=== PATIENT | female | born 1975 | race Caucasian/White ===

== ENCOUNTER 2017-04-17 16:45 | Emergency (ER) | payer BC ==
[~2017-04-17] VITALS: Ht 157.5 cm; Wt 78.1 kg
[~2017-04-17 16:45] MED LIST: PHEN-876 PO; SOLI5TAB2 PO; TAMS0.4C38 PO; TRAM-10 PO
[2017-04-17 16:51] VITALS: TEMP 37.3; Ht 157.5 cm; Wt 78.1 kg
[2017-04-17] MEDS ORDERED: HYDROmorphone INJ 1 MG/ML SYR IV STA (17:00)
[2017-04-17] MEDS ORDERED: ONDANSETRON INJ 2 MG/ML 2 ML VIAL IV STA (17:00)
[2017-04-17] MEDS ORDERED: ACET-1256 PO (17:11)
[2017-04-17 17:13] LABS: BASO % 0.1 %; BASO ABS # 0.01 K/uL (0-0.2); COMPLETE YES; EOS % 0.5 %; HEMATOCRIT 42.4 % (37-47); IG% 0.3 %; LYMPH % 15.4 %; LYMPH ABS # 1.68 K/uL (1.2-3.4); MEAN CELL VOLUME 91.2 fL (80-100); MEAN PLATELET VOLUME 9.6 fL (7.4-10.4); MONO % 6.6 %; NEUT % 77.1 %; PLATELET COUNT 226 K/uL (130-400); RED BLOOD COUNT 4.65 M/uL (4.2-5.4); WHITE BLOOD COUNT 10.93 K/uL (4.8-10.8)
--- NOTE | 2017-04-17 17:23 | EMERGENCY ROOM VISIT NOTE ---
History First contact with patient: 16:53 Chief Complaint: KIDNEY STONE Stated Complaint: PAIN IN R SIDE History of Present Illness The patient is a 41 year old female who presents to the Emergency Room with complaints of right flank pain. The patient states that she had mild pain in the right flank last evening which increased overnight. She now rates her discomfort a 10/10. She began vomiting early this morning. She states she has had chills but denies fevers. She has been using a heating pad without relief. She has a history of kidney stones and has had lithotripsy in the past. She denies any associated urinary symptoms. The pain radiates from the right flank into the right lower abdomen. She does state that her current symptoms feel similar to when she has had kidney stones in the past. She denies any chest pain or shortness of breath. Review of Systems A complete 10 point review of systems was reviewed with the patient with pertinent positives and negatives as per history of present illness. All else were negative. Past Medical/Surgical History Medical Problems: (1) Acute kidney failure, unspecified (2) Essential (primary) hypertension (3) Kidney stone on left side Family History Diabetes mellitus Heart disease Kidney disease Social History Smoking Status: Never Smoker Alcohol Use: occasionally Drug Use: none Marital Status: Housing Status: lives with family Occupation Status: employed Current/Historical Medications Scheduled Ondasetron Odt (Zofran Odt), 4 MG SL Q6H Sulfa/Trimethoprim (Bactrim Ds 800MG/160MG), 1 TAB PO BID Scheduled PRN Acetaminophen (Tylenol), 1,000 MG PO UD PRN for Pain Hydrocodone/Acetaminophen 5MG/325MG ([place] 5MG/325MG), 1-2 TABLET PO Q4H PRN for Pain Physical Exam Vital Signs Date Time Temp Pulse Resp B/P (MAP) Pulse Ox O2 Delivery O2 Flow Rate FiO2 04/17/17 20:17 107 20 143/84 95 04/17/17 19:01 106 20 151/90 95 Room Air 04/17/17 16:51 37.3 128 22 157/88 100 Room Air Physical Exam VITALS: Vitals are noted on the nurse's note and reviewed by myself. Vital signs stable. GENERAL: This is a 41-year-old female, in no acute distress, nondiaphoretic, well-developed well-nourished. HEART: Regular rate and rhythm without murmurs gallops or rubs. LUNGS: Clear to auscultation bilaterally without wheezes, rales or rhonchi. ABDOMEN: Positive bowel sounds x 4. Soft, without pallor quadrant tenderness. Right CVA tenderness. No guarding or rebound tenderness. NEURO: Patient was alert and oriented to person place and time. Medical Decision & Procedures ER Provider Diagnostic Interpretation: ABD/PELVIS WITHOUT FOR STONE IMPRESSION: 1. Mild urothelial thickening combined with mild circumferential bladder wall thickening. This suggest cystitis with upper tract involvement. Correlate with urinalysis. 2. Nonobstructing left renal calculus. 3. Hepatic steatosis. Laboratory Results 04/17/17 17:00 Red Blood Count 4.65, Mean Corpuscular Volume 91.2, Mean Corpuscular Hemoglobin 31.0, Mean Corpuscular Hemoglobin Concent 34.0, Mean Platelet Volume 9.6, Neutrophils (%) (Auto) 77.1, Lymphocytes (%) (Auto) 15.4, Monocytes (%) (Auto) 6.6, Eosinophils (%) (Auto) 0.5, Basophils (%) (Auto) 0.1, Neutrophils # (Auto) 8.44, Lymphocytes # (Auto) 1.68, Monocytes # (Auto) 0.72, Eosinophils # (Auto) 0.05, Basophils # (Auto) 0.01 04/17/17 17:00 Test 04/17/17 16:40 04/17/17 17:00 Urine Color YELLOW Urine Appearance CLOUDY (CLEAR) Urine pH 8.5 (4.5-7.5) Urine Specific [place] 1.014 (1.000-1.030) Urine Protein TRACE (NEG) Urine Glucose (UA) NEG (NEG) Urine Ketones 1+ (NEG) Urine Occult Blood 1+ (NEG) Urine Nitrite POS (NEG) Urine Bilirubin NEG (NEG) Urine Urobilinogen NEG (NEG) Urine Leukocyte Esterase LARGE (NEG) Urine WBC (Auto) >30 /hpf (0-5) Urine RBC (Auto) 10-30 /hpf (0-4) Urine Hyaline Casts (Auto) 1-5 /lpf (0-5) Urine Epithelial Cells (Auto) >30 /lpf (0-5) Urine Bacteria (Auto) 3+ (NEG) Urine Test NEG (NEG) White Blood Count 10.93 K/uL (4.8-10.8) Red Blood Count 4.65 M/uL (4.2-5.4) Hemoglobin 14.4 g/dL (12.0-16.0) Hematocrit 42.4 % (37-47) Mean Corpuscular Volume 91.2 fL (80-100) Mean Corpuscular Hemoglobin 31.0 pg (25-34) Mean Corpuscular Hemoglobin Concent 34.0 g/dl (32-36) Platelet Count 226 K/uL (130-400) Mean Platelet Volume 9.6 fL (7.4-10.4) Neutrophils (%) (Auto) 77.1 % Lymphocytes (%) (Auto) 15.4 % Monocytes (%) (Auto) 6.6 % Eosinophils (%) (Auto) 0.5 % Basophils (%) (Auto) 0.1 % Neutrophils # (Auto) 8.44 K/uL (1.4-6.5) Lymphocytes # (Auto) 1.68 K/uL (1.2-3.4) Monocytes # (Auto) 0.72 K/uL (0.11-0.59) Eosinophils # (Auto) 0.05 K/uL (0-0.5) Basophils # (Auto) 0.01 K/uL (0-0.2) RDW Standard Deviation 43.8 fL (36.4-46.3) RDW Coefficient of Variation 13.2 % (11.5-14.5) Immature Granulocyte % (Auto) 0.3 % Immature Granulocyte # (Auto) 0.03 K/uL (0.00-0.02) Anion Gap 9.0 mmol/L (3-11) Est Creatinine Clear Calc Drug Dose 66.2 ml/min Estimated GFR () 74.5 Estimated GFR (Non- 64.3 BUN/Creatinine Ratio 8.1 (10-20) Calcium Level 8.9 mg/dl (8.5-10.1) Total Bilirubin 0.9 mg/dl (0.2-1) Aspartate Amino Transf (AST/SGOT) 17 U/L (15-37) Alanine Aminotransferase (ALT/SGPT) 23 U/L (12-78) Alkaline Phosphatase 58 U/L (45-117) Total Protein 7.6 gm/dl (6.4-8.2) Albumin 3.7 gm/dl (3.4-5.0) Globulin 3.9 gm/dl (2.5-4.0) Albumin/Globulin Ratio 1.0 (0.9-2) Lipase 130 U/L (73-393) Medications Administered Medications (Trade) Dose Ordered Sig/Verito Route Start Time Stop Time Status Last Admin Dose Admin Hydromorphone HCl (Dilaudid Inj) 1 mg NOW STAT IV 04/17/17 17:00 04/17/17 17:02 DC 04/17/17 17:13 1 MG Ondansetron HCl (Zofran Inj) 4 mg NOW STAT IV 04/17/17 17:00 04/17/17 17:02 DC 04/17/17 17:13 4 MG Ceftriaxone Sodium (Rocephin Inj) 1 gm NOW STAT IV 04/17/17 19:29 04/17/17 19:30 DC 04/17/17 19:34 1 GM Trimethoprim/ Sulfamethoxazole (Sulfameth/ Trimeth Ds 800/ 160MG Home Pack) 1 homepack UD ONCE PO 04/17/17 20:00 04/17/17 20:01 DC 04/17/17 20:08 1 HOMEPACK Ondansetron HCl (ZOFRAN ODT 4MG Home Pack) 1 homepack UD ONCE PO 04/17/17 20:00 04/17/17 20:01 DC 04/17/17 20:09 1 HOMEPACK Acetaminophen/ Hydrocodone Bitart ([place] 5/325mg Home Pack) 1 homepack UD ONCE PO 04/17/17 20:00 04/17/17 20:01 DC 04/17/17 20:08 1 HOMEPACK ED Course The patient was evaluated as above. Labs were drawn and IV access was obtained. Patient was medicated with 1 mg Dilaudid and [address] of the abd/pelvis was performed and read by radiology as above. Patient was reevaluated and findings were discussed. 1 gram Rocephin was ordered. Discharge instructions were reviewed with the patient. The patient verbalized understanding of my assessment and treatment plan and was discharged home in good condition. Medical Decision Differential diagnosis includes kidney stone, pyelonephritis, gallbladder disease, pancreatitis, among others. The patient is a 41-year-old female who presents today complaining of right flank pain and vomiting. Labs revealed a minimal leukocytosis. Creatinine within normal limits. CT showed no stone but evidence of urinary tract infection with upper involvement. Urinalysis was suggestive of infection. Urine was negative. Patient was treated with Rocephin IV and will be placed on Bactrim. She was given a prescription for [place] and Zofran for symptomatic relief. She was instructed to return here for worsening pain, vomiting, fevers, or other worsening symptoms. Based on the patient's presentation and work up, I feel the patient is stable for outpatient treatment. The patient was educated to return to the emergency department for any worsening of their current condition or new/concerning symptoms. She will follow up with her PCP. [facility] Monitoring Program Search Results: patient reviewed within database, no issues identified Medication Reconcilliation Current Medication List: was personally reviewed by me Blood Pressure Screening Patient's blood pressure: Normal blood pressure Impression Primary Impression: Pyelonephritis Departure Information Dispostion Home / Self-Care Condition GOOD Prescriptions Hydrocodone/Acetaminophen 5MG/325MG ([place] 5MG/325MG) Tab 1-2 TABLET PO Q4H Y for Pain, #12 TAB For Initial Treatment Prov: Bhavya Mancini PA-C 04/17/17 Ondasetron Odt (ZOFRAN ODT) 4 Mg Tab 4 MG SL Q6H for Nausea, #15 TAB Prov: Bhavya Mancini PA-C 04/17/17 Sulfa/Trimethoprim (Bactrim Ds 800MG/160MG) Tab 1 TAB PO BID for 9 Days, #18 TAB Prov: Bhavya Mancini PA-C 04/17/17 Referrals Vera Carroll M.D. (PCP) Patient Instructions [facility] Additional Instructions You have been treated in the Emergency Department for a kidney infection. You have been prescribed Bactrim to be taken twice daily for a total of 10 days. This is an antibiotic. All antibiotics have the potential to cause diarrhea. Stop this medication and contact a medical provider if you were to develop any significant adverse side effects including: wheezing, shortness of breath, passing out, vomiting, or a diffuse rash. Always take antibiotics as directed and COMPLETE the ENTIRE course regardless of the improvement of your symptoms. You have been prescribed Zofran to be used for any nausea or vomiting. Take as prescribed. You have been prescribed [place] to be used for pain control. Take 1-2 tablets every 4-6 hours as needed for pain. This is a narcotic medication. You cannot drive or consume alcohol while on this medicine. This medicine should only be used for pain that cannot be controlled with [id number] pain medicines. Drink plenty of water and stay well hydrated. As with any trip to the Emergency Department, you should follow-up with your Primary Care Provider from today's visit. Return to the emergency department if your symptoms persist despite treatment plan outlined above or if the following symptoms occur: Increased pain, fevers, vomiting or any other new/concerning symptoms.
[2017-04-17 17:32] LABS: BUN/CREATININE RATIO 8.1 (10-20); CALCIUM 8.9 mg/dl (8.5-10.1); CREATININE 1.06 mg/dl (0.60-1.20); POTASSIUM 3.8 mmol/L (3.5-5.1)
--- NOTE | 2017-04-17 18:24 | DIAGNOSTIC IMAGING REPORT ---
ABD/PELVIS WITHOUT FOR STONE CLINICAL HISTORY: 41 years-old Female presenting with right flank pain, vomiting, hx stones. TECHNIQUE: Multidetector CT of the abdomen and pelvis was performed without the use of intravenous contrast. IV contrast: None. A dose lowering technique was used consistent with the principles of ALARA (as low as reasonably achievable). COMPARISON: 07/14/2015. CT DOSE (mGy.cm): The estimated cumulative dose is 1156.04 mGy.cm. FINDINGS: Administration Manager topogram: Unremarkable. Lung bases: Minimal dependent changes likely atelectasis. Normal heart size. No pericardial or pleural effusion. Liver: Normal morphology. Density consistent with hepatic steatosis. Biliary: No gross biliary ductal dilatation allowing for noncontrast technique. Normal gallbladder. Pancreas: Normal noncontrast appearance. Spleen: Small hypodensity in the spleen, likely hemangioma or lymphangioma. Adrenal glands: Normal noncontrast appearance. Kidneys and ureters: 11 mm nonobstructing calculus in the interpolar region of the left kidney. Right kidney normal. No hydronephrosis. Mild urothelial thickening suggested. Bladder: Mild circumferential bladder wall thickening. Pelvic organs: Normal noncontrast appearance. Bowel: Mild stool burden. No bowel obstruction. Peritoneal cavity: No free fluid or intraperitoneal gas. Lymph nodes: No gross lymphadenopathy allowing for noncontrast technique. Vasculature: Normal noncontrast appearance. Abdominal wall: Normal. Musculoskeletal: Normal. IMPRESSION: 1. Mild urothelial thickening combined with mild circumferential bladder wall thickening. This suggest cystitis with upper tract involvement. Correlate with urinalysis. 2. Nonobstructing left renal calculus. 3. Hepatic steatosis. Electronically signed by: Madhu Quiroz M.D. 04/17/2017 6:22 PM Dictated Date/Time: 04/17/2017 6:16 PM
[2017-04-17 19:10] LABS: URINE APPEARANCE CLOUDY (CLEAR); URINE BILIRUBIN NEG (NEG); URINE COLOR YELLOW; URINE EPITHELIAL CELL AUTO >30 /lpf (0-5); URINE NITRITE POS (NEG); URINE PH 8.5 (4.5-7.5); URINE SPECIFIC GRAVITY 1.014 (1.000-1.030); UROBILINOGEN NEG (NEG); ZZUR CULT IF INDIC CLEAN CATCH YES
[2017-04-17 19:22] LABS: MANUAL MICROSCOPIC REQUIRED? NO; REVIEW REQ? NO; SULFASALICYLIC ACID POS (NEG)
[2017-04-17] MEDS ORDERED: CEFTRIAXONE SOD INJ 1 GM ADDVIAL IV STA (19:29)
[2017-04-17] MEDS ORDERED: SEPTRA DS HOME PACK 1 EA VIAL PO ONE (20:00)
[2017-04-17] MEDS ORDERED: ONDANSETRON HOME PACK 4MG OD TAB PO ONE (20:00)
[2017-04-17] MEDS ORDERED: NORCO 5/325MG HOME PACK PO ONE (20:00)
[2017-04-17] MEDS ORDERED: SULF800T23 PO (20:09)
[2017-04-17] MEDS ORDERED: ONDA4TAB10 SL (20:09)
[2017-04-17] MEDS ORDERED: HYDR-5688 PO (20:09)
[2017-04-17 20:17] VITALS: BP 143/84; PULSE 107; O2SAT 95
--- NOTE | 2017-04-19 11:39 | Pharmacy Progress Note ---
ED Pharmacist Culture FollowUp Date of Service: Apr 19, 2017. Patient was sent home with a prescription for Bactrim, which should cover the E. coli growing from the patient's urine culture.
== END 2017-04-17 20:18 | disposition home or self-care (01) ==
LOC: C.EDB 16:46
DX: N12 Tubulo-interstitial nephritis, not specified as acute or chronic (principal); R11.10 Vomiting, unspecified; I10 Essential (primary) hypertension; Z87.442 Personal history of urinary calculi; Z82.49 Family history of ischemic heart disease and other diseases of the circulatory system; Z83.3 Family history of diabetes mellitus; Z84.1 Family history of disorders of kidney and ureter

== ENCOUNTER 2017-04-23 09:42 | Emergency (ER) | payer BC ==
[~2017-04-23] VITALS: Ht 165.1 cm; Wt 80.0 kg
[~2017-04-23 09:42] MED LIST changes: +ACET-1256 PO; +HYDR-5688 PO; +ONDA4TAB10 SL; -PHEN-876 PO; -SOLI5TAB2 PO; +SULF800T23 PO; -TAMS0.4C38 PO; -TRAM-10 PO
[2017-04-23 09:48] VITALS: TEMP 36.8; Ht 165.1 cm; Wt 80.0 kg
[2017-04-23] MEDS ORDERED: CEFTRIAXONE SOD INJ 1 GM ADDVIAL IV STA (10:22)
[2017-04-23] MEDS ORDERED: SODIUM CHLORIDE 0.9% 1000ML 1,000 ML IV STA ×2 (10:22→12:40)
[2017-04-23 11:00] LABS: URINE APPEARANCE CLEAR (CLEAR); URINE BILIRUBIN NEG (NEG); URINE COLOR YELLOW; URINE EPITHELIAL CELL AUTO >30 /lpf (0-5); URINE NITRITE NEG (NEG); URINE PH 6.5 (4.5-7.5); URINE SPECIFIC GRAVITY 1.012 (1.000-1.030); UROBILINOGEN NEG (NEG)
[2017-04-23 11:04] LABS: MANUAL MICROSCOPIC REQUIRED? NO; REVIEW REQ? NO
[2017-04-23 11:08] LABS: BASO % 0.4 %; BASO ABS # 0.02 K/uL (0-0.2); COMPLETE YES; EOS % 2.5 %; HEMATOCRIT 44.5 % (37-47); IG% 0.2 %; LYMPH % 38.7 %; LYMPH ABS # 1.84 K/uL (1.2-3.4); MEAN CELL VOLUME 90.3 fL (80-100); MEAN CORPUSCULAR HEMOGLOBIN 31.4 pg (25-34); MEAN CORPUSCULAR HGB CONC 34.8 g/dl (32-36); MEAN PLATELET VOLUME 9.8 fL (7.4-10.4); MONO % 10.7 %; NEUT % 47.5 %; PLATELET COUNT 286 K/uL (130-400); RED BLOOD COUNT 4.93 M/uL (4.2-5.4); WHITE BLOOD COUNT 4.76 K/uL (4.8-10.8)
[2017-04-23 11:12] LABS: PREG INTERNAL NEGATIVE QC NEG CLEAR BACKGROUND; PREG INTERNAL POSITIVE QC POS CONTROL LINE
[2017-04-23 11:22] LABS: BUN/CREATININE RATIO 10.3 (10-20); CALCIUM 9.1 mg/dl (8.5-10.1); CREATININE 1.24 mg/dl (0.60-1.20)
--- NOTE | 2017-04-23 11:33 | DIAGNOSTIC IMAGING REPORT ---
(RENAL)RETROPERITON COMP HISTORY: 41 years-old Female RIGHT FLANK PAIN acute right-sided flank pain. COMPARISON: CT 04/17/2017 TECHNIQUE: Multiple real-time sonographic images of the kidneys and urinary bladder were obtained assessing grayscale appearance and color flow. FINDINGS: The right kidney measures 10.7 x 5.0 x 5.9 cm and is again unremarkable without renal calculi or hydronephrosis. Cortical medullary differentiation is preserved. 9 mm calculus of the interpolar left kidney is redemonstrated without hydronephrosis. The left kidney measures 10.5 x 5.4 x 5.6 cm and is otherwise unremarkable. Cortical medullary differentiation is preserved. Bilateral ureteral jets are seen within the bladder. Mild amount of mobile debris seen within the dependent bladder. Imaged uterus is unremarkable. Incidental note is made of mildly increased echogenicity of the liver. IMPRESSION: 1. 9 mm calculus of the interpolar left kidney is again seen. No evidence of hydronephrosis within either kidney. 2. Mild degree of mobile debris within urinary bladder is nonspecific. Correlate with urinalysis. 3. Mild fatty infiltration of the liver. The above report was generated using voice recognition software. It may contain grammatical, syntax or spelling errors. Electronically signed by: Jessee Cartagena M.D. 04/23/2017 11:32 AM Dictated Date/Time: 04/23/2017 11:29 AM
--- NOTE | 2017-04-23 12:03 | DIAGNOSTIC IMAGING REPORT ---
KUB HISTORY: Acute right-sided flank pain RIGHT FLANK PAIN COMPARISON: Renal ultrasound of same day, CT 04/17/2017 FINDINGS: The bowel gas pattern is non-obstructive. There is no organomegaly. 1.5 x 0.6 cm calcification is seen within the region of the interpolar left kidney. No definite right-sided renal calculi identified. No definite ureteral calculi. Phleboliths of the pelvis redemonstrated. No pneumoperitoneum or pneumatosis. No fracture. IMPRESSION: 1. Unchanged large calculus of the interpolar left kidney without ureteral calculi identified. Electronically signed by: Jessee Cartagena M.D. 04/23/2017 12:02 PM Dictated Date/Time: 04/23/2017 12:00 PM
--- NOTE | 2017-04-23 13:23 | EMERGENCY ROOM VISIT NOTE ---
History First contact with patient: 09:56 Chief Complaint: URINARY SYMPTOMS Stated Complaint: KIDNEY INFECTION Nursing Triage Summary: Pt c/o pain on right side, seen Wednesday here and treated for kidney infection. Still has pain. Still has fever and burning with urination. Tylenol 8am. History of Present Illness Patient is a 41-year-old white female who returns to the emergency department for ongoing right flank pain, fevers and vomiting times roughly 1 week. She was seen in the emergency Department 6 days ago for the same complaint. At that time, she had more colicky right flank pain, and was concerned that she was passing another kidney stone. She does have a history of kidney stones, and has required lithotripsy in the past. She was seen on the and thoroughly evaluated. She was found to have a slight leukocytosis, urinalysis was concerning for UTI, and CT scan of the abdomen and pelvis did not demonstrate any right-sided nephrolithiasis or ureteral calculus, but did show findings consistent with cystitis with upper tract involvement. She was treated with IV Rocephin, and was discharged on Bactrim. Urine culture grew a pansensitive Escherichia coli. Patient has been taking the Bactrim as prescribed. She has had a 5 and half days of Bactrim therapy. She continues to note a constant, achy right mid back pain. It does not radiate into the abdomen or the flank any longer. She continues to run intermittent fevers, she states that her temperature last evening was 101.9F orally, it was 100F orally prior to coming to the emergency department this morning. She continues to be nauseous and has had vomiting intermittently, which is helped by using her Zofran. She has been taking 2000 mg of acetaminophen every 6 hours. She did use a Dante tablet for her back pain yesterday. She continues to no burning with urination. She denies any anterior abdominal pain. She has had some loose bowel movements, but no diarrhea. She did call her primary care doctor's office today, and was referred to the emergency department for further care and evaluation. She presently rates her discomfort a 8/10. Review of Systems Review of systems as per HPI. All other systems reviewed were negative. 10 systems reviewed. Past Medical/Surgical History Medical Problems: (1) Acute kidney failure, unspecified (2) Calculus Of Kidney (3) Calculus Of Ureter (4) Constipation (5) Essential (primary) hypertension (6) Kidney stone on left side (7) Pyelonephritis Surgical Problems: (1) History of arthroscopic knee surgery (2) History of lithotripsy Electronic medical records are reviewed and summarized as above/below. See Problem List. Family History Diabetes mellitus Heart disease Kidney disease Social History Smoking Status: Never Smoker Alcohol Use: occasionally Drug Use: none Marital Status: Housing Status: lives with family Occupation Status: employed Current/Historical Medications Scheduled Ondasetron Odt (Zofran Odt), 4 MG SL Q6H Sulfa/Trimethoprim (Bactrim Ds 800MG/160MG), 1 TAB PO BID Scheduled PRN Acetaminophen (Tylenol), 1,000 MG PO UD PRN for Pain Hydrocodone/Acetaminophen 5MG/325MG (Dante 5MG/325MG), 1-2 TABLET PO Q4H PRN for Pain Physical Exam Vital Signs Date Time Temp Pulse Resp B/P (MAP) Pulse Ox O2 Delivery O2 Flow Rate FiO2 04/23/17 14:35 80 18 147/90 97 04/23/17 13:00 85 18 149/90 97 Room Air 04/23/17 11:39 90 20 155/95 100 Room Air 04/23/17 11:02 89 20 149/102 96 Room Air 04/23/17 09:48 36.8 101 18 187/111 98 Room Air Physical Exam CONSTITUTIONAL: Patient is a nontoxic-appearing 41-year-old white female who is awake and alert and in moderate distress due to her right back pain. EYES: Pupils equal, round, reactive to light and accommodation. EOMs intact without nystagmus. Sclera are anicteric. ENT: Tympanic membranes intact, with normal landmarks. External canals are clear. Oral and nasopharynx are clear. Mucous membranes are moist, no lesions , tongue and gums appear normal. CARDIOVASCULAR: Regular rate and rhythm, with normal S1 and S2, no murmur or gallop or rub is heard. No carotid bruits auscultated. No JVD. Peripheral pulses easy to palpable. RESPIRATORY: Breath sounds equal and clear to auscultation without wheezes, rales, or rhonchi heard. Full and equal chest expansion without accessory muscle use or retractions. GI: Bowel sounds are present. Abdomen is soft, nontender, nondistended. No right upper quadrant pain to palpation. No organomegaly. No pulsatile masses. No guarding or rebound. Right CVA tenderness noted. MUSCULOSKELETAL: Full range of motion of extremities x 4 with good strength. No cyanosis, edema, joint tenderness or swelling. No deformity. INTEGUMENTARY: No lesions or rash, normal skin turgor. NEUROLOGICAL: Alert, oriented, and cooperative. Cranial nerves, sensation and strength grossly intact. Pupils round, equal, and react to light, EOMs are full. LYMPH: No lymphadenopathy. Medical Decision & Procedures ER Provider Diagnostic Interpretation: (RENAL)RETROPERITON COMP HISTORY: 41 years-old Female RIGHT FLANK PAIN acute right-sided flank pain. COMPARISON: CT 04/17/2017 TECHNIQUE: Multiple real-time sonographic images of the kidneys and urinary bladder were obtained assessing grayscale appearance and color flow. FINDINGS: The right kidney measures 10.7 x 5.0 x 5.9 cm and is again unremarkable without renal calculi or hydronephrosis. Cortical medullary differentiation is preserved. 9 mm calculus of the interpolar left kidney is redemonstrated without hydronephrosis. The left kidney measures 10.5 x 5.4 x 5.6 cm and is otherwise unremarkable. Cortical medullary differentiation is preserved. Bilateral ureteral jets are seen within the bladder. Mild amount of mobile debris seen within the dependent bladder. Imaged uterus is unremarkable. Incidental note is made of mildly increased echogenicity of the liver. IMPRESSION: 1. 9 mm calculus of the interpolar left kidney is again seen. No evidence of hydronephrosis within either kidney. 2. Mild degree of mobile debris within urinary bladder is nonspecific. Correlate with urinalysis. 3. Mild fatty infiltration of the liver. KUB HISTORY: Acute right-sided flank pain RIGHT FLANK PAIN COMPARISON: Renal ultrasound of same day, CT 04/17/2017 FINDINGS: The bowel gas pattern is non-obstructive. There is no organomegaly. 1.5 x 0.6 cm calcification is seen within the region of the interpolar left kidney. No definite right-sided renal calculi identified. No definite ureteral calculi. Phleboliths of the pelvis redemonstrated. No pneumoperitoneum or pneumatosis. No fracture. IMPRESSION: 1. Unchanged large calculus of the interpolar left kidney without ureteral calculi identified. Laboratory Results 04/23/17 10:35 Red Blood Count 4.93, Mean Corpuscular Volume 90.3, Mean Corpuscular Hemoglobin 31.4, Mean Corpuscular Hemoglobin Concent 34.8, Mean Platelet Volume 9.8, Neutrophils (%) (Auto) 47.5, Lymphocytes (%) (Auto) 38.7, Monocytes (%) (Auto) 10.7, Eosinophils (%) (Auto) 2.5, Basophils (%) (Auto) 0.4, Neutrophils # (Auto ) 2.26, Lymphocytes # (Auto) 1.84, Monocytes # (Auto) 0.51, Eosinophils # (Auto ) 0.12, Basophils # (Auto) 0.02 04/23/17 10:35 Test 04/23/17 10:30 04/23/17 10:35 Urine Color YELLOW Urine Appearance CLEAR (CLEAR) Urine pH 6.5 (4.5-7.5) Urine Specific [place] 1.012 (1.000-1.030) Urine Protein NEG (NEG) Urine Glucose (UA) NEG (NEG) Urine Ketones NEG (NEG) Urine Occult Blood NEG (NEG) Urine Nitrite NEG (NEG) Urine Bilirubin NEG (NEG) Urine Urobilinogen NEG (NEG) Urine Leukocyte Esterase MODERATE (NEG) Urine WBC (Auto) 5-10 /hpf (0-5) Urine RBC (Auto) 5-10 /hpf (0-4) Urine Hyaline Casts (Auto) 1-5 /lpf (0-5) Urine Epithelial Cells (Auto) >30 /lpf (0-5) Urine Bacteria (Auto) NEG (NEG) Urine Test NEG (NEG) White Blood Count 4.76 K/uL (4.8-10.8) Red Blood Count 4.93 M/uL (4.2-5.4) Hemoglobin 15.5 g/dL (12.0-16.0) Hematocrit 44.5 % (37-47) Mean Corpuscular Volume 90.3 fL (80-100) Mean Corpuscular Hemoglobin 31.4 pg (25-34) Mean Corpuscular Hemoglobin Concent 34.8 g/dl (32-36) Platelet Count 286 K/uL (130-400) Mean Platelet Volume 9.8 fL (7.4-10.4) Neutrophils (%) (Auto) 47.5 % Lymphocytes (%) (Auto) 38.7 % Monocytes (%) (Auto) 10.7 % Eosinophils (%) (Auto) 2.5 % Basophils (%) (Auto) 0.4 % Neutrophils # (Auto) 2.26 K/uL (1.4-6.5) Lymphocytes # (Auto) 1.84 K/uL (1.2-3.4) Monocytes # (Auto) 0.51 K/uL (0.11-0.59) Eosinophils # (Auto) 0.12 K/uL (0-0.5) Basophils # (Auto) 0.02 K/uL (0-0.2) RDW Standard Deviation 42.5 fL (36.4-46.3) RDW Coefficient of Variation 12.9 % (11.5-14.5) Immature Granulocyte % (Auto) 0.2 % Immature Granulocyte # (Auto) 0.01 K/uL (0.00-0.02) Anion Gap 10.0 mmol/L (3-11) Est Creatinine Clear Calc Drug Dose 61.1 ml/min Estimated GFR () 61.6 Estimated GFR (Non- 53.2 BUN/Creatinine Ratio 10.3 (10-20) Calcium Level 9.1 mg/dl (8.5-10.1) Total Bilirubin 0.4 mg/dl (0.2-1) Aspartate Amino Transf (AST/SGOT) 19 U/L (15-37) Alanine Aminotransferase (ALT/SGPT) 30 U/L (12-78) Alkaline Phosphatase 55 U/L (45-117) Total Protein 8.4 gm/dl (6.4-8.2) Albumin 4.2 gm/dl (3.4-5.0) Globulin 4.2 gm/dl (2.5-4.0) Albumin/Globulin Ratio 1.0 (0.9-2) Acetaminophen Level < 2 ug/ml (10-30) Medications Administered Medications (Trade) Dose Ordered Sig/Verito Route Start Time Stop Time Status Last Admin Dose Admin Sodium Chloride 1,000 ml @ 999 mls/hr Q1H1M STAT IV 04/23/17 10:22 04/23/17 11:22 DC 04/23/17 11:01 999 MLS/HR Ceftriaxone Sodium (Rocephin Inj) 1 gm NOW STAT IV 04/23/17 10:22 04/23/17 10:25 DC 04/23/17 11:01 1 GM Sodium Chloride 1,000 ml @ 999 mls/hr Q1H1M STAT IV 04/23/17 12:40 04/23/17 13:40 DC 04/23/17 13:05 999 MLS/HR ED Course The patient was seen and assessed as above. Her old records were reviewed, specifically her most recent ED visit. IV lock was initiated. Laboratory studies were collected including CBC with differential, CMP, blood cultures 2, urinalysis, acetaminophen level, and [id number] lactic acid. She was given a liter bolus of normal saline solution 2, and medicated with 1 g of ceftriaxone IV. She was offered at multiple times, medications for pain and nausea, but declined. She was noted to be initially tachycardic and hypertensive upon presentation to the emergency department, tachycardia improved with IV hydration, blood pressure remained borderline elevated. I suspect that this is likely situational. Laboratory studies today are somewhat improved. White count today is 4700, down from almost 11,000 6 days ago. No left shift or bandemia noted. There are no electrolyte imbalance noted. Creatinine is slightly elevated today at 1.24, BUN is normal. LFTs are not elevated. Acetaminophen level is undetectable. Urinalysis showed a notes moderate leuk esterase, only 5-10 WBCs and RBCs and greater than 30 epithelial cells. There is no ketones, no nitrates , no bacteria detected. [id number] lactic acid was 1.29. KUB noted a large, unchanged calculus in the interpolar the left kidney. No other acute findings are noted. No definite right-sided calculi were identified. Retroperitoneal ultrasound noted the right kidney to be unremarkable without calculi, hydronephrosis or other acute abnormality. Bilateral jets were identified. All laboratory and diagnostic imaging studies were reviewed with attending physician, and discussed with the patient. Her urine culture from last week grew a pansensitive Escherichia coli which should be responsive to the Bactrim. She remained afebrile while in the emergency department. She does not appear septic at this time. Her presentation does not appear consistent with a failed outpatient management of a pyelonephritis. It is unclear why she is still experiencing the right back pain, could be residual from her illness, differential diagnoses also entertained included renal colic, musculoskeletal pain, shingles, pleurisy, among others. The patient was encouraged to finish her antibiotics, use her nausea and pain medications as prescribed, and follow- up with her PCP for further care and evaluation. She was discharged to home with her in stable condition. She rated her pain a 7/10 at discharge. Medical Decision See ED course. Medication Reconcilliation Current Medication List: was personally reviewed by me Blood Pressure Screening Patient's blood pressure: Elevated blood pressure Blood pressure disposition: Elevated BP felt to be situational Impression Primary Impression: Right-sided back pain Additional Impressions: Dysuria Vomiting Departure Information Referrals Vera Carroll M.D. (PCP) Patient Instructions My [facility] Additional Instructions Finish Bactrim as previously prescribed. Continue Zofran and Dante as needed. Ibuprofen(Motrin, Advil) may be used for fever or pain. Use 600mg every six hours as needed. Take with food. Avoid using more than 2400mg in a 24 hour period. Do not use 2400mg per day for more than three consecutive days without physician direction. Prolonged inappropriate use can lead to stomach upset or ulcers. This is available over the counter and typically comes in 200mg tablets. (AND/OR) Acetaminophen(Tylenol) may be used for fever or pain. Use 1000mg every eight hours as needed. Avoid using more than 3000mg in a 24 hour period. This is available over the counter. Rest and drink plenty of fluids as tolerated. Slow sips of water or sports drinks are recommended instead of large amounts all at once. Continue current medications. Once your stomach is settled start with a clear liquid diet (jello, soup broth, etc.) and then advance as tolerated. You should avoid full, heavy meals for about 24 hrs from the time your symptoms resolved. Return to the ER immediately for worsening or persistent abdominal/back pain, vomiting, fevers, worsening of your condition, or as needed. Follow up with your primary physician within 2-3 days for a recheck of the current condition Problem Qualifiers
[2017-04-23 14:35] VITALS: BP 147/90; PULSE 80; O2SAT 97
== END 2017-04-23 14:35 | disposition home or self-care (01) ==
LOC: C.EDB 09:44 → C.EDA 14:35
DX: R10.31 Right lower quadrant pain (principal); R30.0 Dysuria; R11.2 Nausea with vomiting, unspecified; Z87.442 Personal history of urinary calculi; I10 Essential (primary) hypertension; Z83.3 Family history of diabetes mellitus; Z84.1 Family history of disorders of kidney and ureter

== ENCOUNTER → 2018-01-07 | Outpatient (CLI) | payer OTHER ==
[~2018-01-07] MED LIST changes: -ACET-1256 PO; +AMLO10TA3 PO; +CPR500 PO; -HYDR-5688 PO; +HYDR12.55 PO; -ONDA4TAB10 SL; +PHEN-1043 PO; +SENN8.6T7 PO; -SULF800T23 PO; +TAMS0.4C38 PO
--- NOTE | 2018-01-07 08:16 | DIAGNOSTIC IMAGING REPORT ---
KUB HISTORY: Follow-up study in a patient with history of ureteral calculi and left ureteral stent N20.1 Ureteric stone COMPARISON: KUB 12/23/2017 and 12/11/2017. FINDINGS: The bowel gas pattern is non-obstructive. Moderate formed stool throughout the colon. There is no organomegaly. Left ureteral stent appears in satisfactory positioning. Previously noted left renal calculi are no longer identified. Phleboliths of the left hemipelvis redemonstrated. There is a 4 mm calcification along the distal portion of the left ureteral stent which appears new from comparison. No pneumoperitoneum or pneumatosis. No fracture. IMPRESSION: 1. 4 mm calcification along the distal portion of the left ureteral stent suggests probable calculus. 2. Left nephrolithiasis no longer identified. Electronically signed by: Jessee Cartagena M.D. 01/07/2018 8:15 AM Dictated Date/Time: 01/07/2018 8:11 AM
== END | disposition home or self-care (01) ==
LOC: C.RAD 07:55
PROVIDERS: ATTEND Urology
DX: N20.1 Calculus of ureter (principal)